=== PATIENT | male | born 1985 | race Asian ===

== ENCOUNTER 2017-08-17 15:27 | Emergency (ER) | payer OTHER ==
[~2017-08-17] VITALS: Ht 170.2 cm; Wt 89.0 kg
[2017-08-17 15:32] VITALS: BP 138/74
[2017-08-17] MEDS ORDERED: ciprofloxacin 0.3% 5ml ophthalmic solution EACHEYE STA (15:37)
== END 2017-08-17 15:56 | disposition home or self-care (01) ==
LOC: ER 15:28
DX: B99.9 Unspecified infectious disease (principal); H10.89 Other conjunctivitis
CPT/HCPCS: 99282

== ENCOUNTER 2017-09-01 13:32 | Emergency (ER) | payer MEDICAID, OTHER ==
[~2017-09-01] VITALS: Ht 170.2 cm; Wt 86.0 kg
[2017-09-01] MEDS ORDERED: TETanus/Pertussis (Acell)/Diphther VAC/PF (Tdap-Adult) 0.5ml syringe IM ONE (15:50)
[2017-09-01] MEDS ORDERED: CefTRIAXone 250MG IM Kit w/LIDOcaine IM ONE (16:35)
[2017-09-01] MEDS ORDERED: azithromycin 250mg tablet PO ONE (16:35)
[2017-09-01] MEDS ORDERED: ondansetron 4mg rapidly disintigrating tab PO ONE (16:35)
[2017-09-01 16:48] LABS: CLARITY,URINE CLOUDY (Clear); COLOR,URINE YELLOW (Yellow); GLUCOSE, URINE NEGATIVE (Neg); KETONES,URINE TRACE mg/dl (Neg); LEUKOCYTE ESTERASE ,URINE MODERATE (Neg); NITRITES, URINE NEGATIVE (Neg); OCCULT BLOOD,URINE TRACE-INTACT (Neg); PROTEIN,URINE TRACE mg/dl (Neg); UA COLLECTION TYPE CLN CATCH MIDSTREAM; UROBILINOGEN,URINE 0.2 E.U/dL (0.2-1.0)
[2017-09-01 16:54] LABS: BACTERIA,URINE 2+ /HPF (Neg); MUCUS STRANDS FEW /LPF (Neg); SQUAMOUS EPITHELIAL CELL,UR FEW /LPF (FEW); WBC CLUMPS,URINE FEW /HPF (NEGATIVE)
[2017-09-01 16:55] LABS: RBC,URINE 0-2 /HPF (0-2); WBC,URINE TNTC /HPF (0-4)
[2017-09-01] MEDS ORDERED: ciprofloxacin 0.3% 5ml ophthalmic solution EACHEYE STA (17:04)
[2017-09-01 17:44] VITALS: BP 129/75
== END 2017-09-01 17:45 | disposition home or self-care (01) ==
LOC: ER 13:33
DX: H10.9 Unspecified conjunctivitis (principal); F17.200 Nicotine dependence, unspecified, uncomplicated; F15.90 Other stimulant use, unspecified, uncomplicated
CPT/HCPCS: 36415; 81001; 87070; 87088; 87491; 87591; 90471; 90715; 96372; 99284; J0696; 87077; 87185

== ENCOUNTER 2020-06-26 17:55 | Emergency (ER) | payer MEDICAID, OTHER ==
[~2020-06-26] VITALS: Ht 170.2 cm; Wt 90.9 kg
[2020-06-26 18:38] VITALS: BP 115/63
--- NOTE | 2020-06-26 18:46 | NUR ---
PT STATES CHP WERE AT SCENE, WAS GIVEN
[2020-06-26] MEDS ORDERED: LIDOcaine 1% W/epiNEPHrine 1:100,000 20ml vial SQ ONE (19:10)
[2020-06-26] MEDS ORDERED: HYDR-3972 PO (20:05)
[2020-06-26] MEDS ORDERED: ORPH100T2 PO (20:05)
== END 2020-06-26 20:15 | disposition home or self-care (01) ==
LOC: ER 17:55
DX: S16.1XXA Strain of muscle, fascia and tendon at neck level, initial encounter (principal); S29.012A Strain of muscle and tendon of back wall of thorax, initial encounter; S20.212A Contusion of left front wall of thorax, initial encounter; F11.90 Opioid use, unspecified, uncomplicated; F12.90 Cannabis use, unspecified, uncomplicated; F15.90 Other stimulant use, unspecified, uncomplicated; F17.200 Nicotine dependence, unspecified, uncomplicated; V49.9XXA Car occupant (driver) (passenger) injured in unspecified traffic accident, initial encounter; W22.11XA Striking against or struck by driver side automobile airbag, initial encounter; Y93.89 Activity, other specified; Y92.89 Other specified places as the place of occurrence of the external cause; Y99.8 Other external cause status
CPT/HCPCS: 71045; 72125; 99284

== ENCOUNTER 2020-07-02 18:45 | Emergency (ER) | payer MEDICAID ==
[~2020-07-02] VITALS: Ht 152.4 cm; Wt 90.9 kg
[~2020-07-02 18:45] MED LIST: HYDR-3972 PO; ORPH100T2 PO
[2020-07-02 18:50] VITALS: BP 125/76
== END 2020-07-02 21:49 | disposition home or self-care (01) ==
LOC: ER 18:46
DX: M79.10 Myalgia, unspecified site (principal); Z02.89 Encounter for other administrative examinations; V98.8XXA Other specified transport accidents, initial encounter; Y93.89 Activity, other specified; Y92.89 Other specified places as the place of occurrence of the external cause; Y99.8 Other external cause status
CPT/HCPCS: 99283

== ENCOUNTER 2024-08-07 10:45 | Emergency (ER) | payer MEDICAID ==
[~2024-08-07] VITALS: Ht 170.2 cm; Wt 90.9 kg
[~2024-08-07 10:45] MED LIST changes: -HYDR-3972 PO; -ORPH100T2 PO; +ORPH100T4 PO
[2024-08-07 10:52] VITALS: BP 125/74; PULSE 97; RESP 16; TEMP 97.5; O2SAT 99
--- NOTE | 2024-08-07 11:40 | Physician Documentation ---
History of Present Illness ~ Chief Complaint: Nose Pain Stated Complaint: SINUS INFECTION Time Seen by MD: 11:16 HPI This is a very pleasant previously healthy 38-year-old gentleman who presents for evaluation of nasal congestion for the last three days. No obvious trigger provocation. Voice about sinus infection. Can not breathe through his right nostril, reports significant swelling of the left nostril. Significant congestion with a green discharge. No foreign body insertion. The particular palliating or aggravating factors. Denies any fever or chills. Denies any headache. Denies any symptoms. No concern for tobacco, alcohol or illicit substances use Medication Reconciliation Allergies: Coded Allergies: No Known Allergies (Unverified , 08/17/17) Scheduled Orphenadrine Citrate (Norflex), 1 TAB PO Q12H PRN Past Medical History Past Medical History: No Pertinent History Past Surgical History: no surgical history Alcohol Use: None Lives with: Family Lives In: Home Review of Systems ROS 10 point review of systems was performed and unless noted above in HPI is negative for acute process/complaint. Physical Exam Vital Signs: Temperature: 97.5, Source: Temporal, Heart Rate: 97, Respiratory Rate: 16, BP: 125/74, Pulse Oximetry: 99, Weight: 90.910 Oxygen Flow Rate: 0 Physical Exam Physical examination: GENERAL: Awake, alert, oriented, GCS 15, no apparent distress, non-toxic appearing, answers questions, follows commands appropriately. HEENT: Atraumatic, normocephalic, pupils equal, extraocular muscles intact Active gross movements, sclerae anicteric, mucus membranes moist, no stridor. NECK: Midline, no JVD CARDIOVASCULAR: Good skin perfusion without evidence of pallor, mottling. PULMONARY: Nonlabored, symmetric chest rise, no audible wheezing, no accessory muscle use, no respiratory distress, speaking in full sentences. GASTROINTESTINAL: Not distended. NEUROLOGIC: Lucid with normal mental status. Normal facial symmetry. Moves all extremities symmetrically and with purpose. No truncal ataxia. Speech is fluid without evidence of dysarthria or aphasia, no focal deficits appreciated. EXTREMITIES: Acute deformities Skin: warm, dry PSYCHIATRIC: Normal affect, normal insight, normal concentration. Focused exam: Appropriate anatomy of the nose, no tenderness over the bridge, no tenderness over the ala bilaterally, nasal passages examined. Significant swelling of turbinates in the right Parra, almost obstructing the entire right near. Left Parra has some mucosal swelling but appears to be patent. No floor of the mouth elevation. No drooling. No tenderness to percussion of maxillary or frontal sinuses. No pain with the extraocular range of motion. No trismus. Progress Results/Orders Results/Orders Vital Signs 08/07/24 10:52 Temp 97.5 Pulse 97 Resp 16 B/P (MAP) 125/74 Pulse Ox 99 O2 Flow Rate 0 Medical Decision Making Findings Facility Status: ED Holds, [facility] process The plan was discussed with the patient, who demonstrates clear understanding of the plan and is in agreement with the plan unless otherwise noted in the chart. All questions have been answered, all concerns were addressed unless otherwise documented. I was available throughout their ED stay for frequent reassessment and questions. Differential Diagnoses (considered and possible or likely): [Most likely represents nasal congestion secondary to viral infection, less likely bacterial infection, less likely sinusitis. Neoplasm has been considerably duration of symptoms does not warrant an immediate ENT consultation or imaging at this time. No evidence of epistaxis. Denies any foreign body insertion. No evidence of airway obstruction. 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 ] ??Differential Diagnoses (considered and unlikely, not requiring evaluation c urrently): [No evidence of traumatic injury] MDM Data Please see [facility] for the following: Independent Historians and external Records Review. Historian: [Patient] Independent Historians: ?[Girlfriend] Medication Management: [Reviewed medication list] Social History and determinants: [Reviewed] Please see the body of the note for the following: Any independent interpretations of ECG, imaging studies. All vitals signs/haemodynamics, ordered tests were independently reviewed and interpreted by myself. Nursing triage complaint and vitals reviewed, additional nursing notes were reviewed as available and I agree unless otherwise noted or documented in contradiction in the chart Vital Signs: Independently reviewed Labs: Independently interpreted Imaging: Independently interpreted Old Medical Records: Independently reviewed, see [facility] for relevant summary and information Pulse Oximetry: [99%] interpreted as [normal on room air] by me [Ply Cutter: [Regular Rate, Regular rhythm, no ectopy, NSR] reviewed and interpreted by me] Additionally notably showing: [Hemodynamically stable] Tests considered but not ordered include: [Hematologic workup and imaging has been considered but does not appear to be necessary given clinical nature of diagnosis] Social Determinants of Health Impact: Patient was evaluated in [facility] [place], or [facility] [place] to healthcare due to below par ratio of patient to medical providers. [] Comorbid Conditions Impacting Present Evaluation and Care/Treatment: [None reported by the patient] Management Discussions with other Healthcare Providers: [None] Treatment and Disposition Medication Management (Given or considered): []. See EMR for details Consideration for Hospitalization/Escalation/Deescalation of Care: Admission for observation has been considered, [however the patient is able to tolerate p.o., their symptoms are controlled, they are able to rely on oral medications, and their chief complaint/diagnosis can be managed on outpatient basis.] ?ED Course:?[No clinical deterioration.] ?Shared decision making:?[Patient is hemodynamically stable for discharge home with follow with their primary care provider. [ ] Specific and cautious return precautions provided and discussed with full understanding. Any incidental findings were also discussed and follow up recommendations given. [] All questions answered. Patient/family were able to verbalize back return precautions. Patient/family agree to plan. Copies of imaging and laboratory studies were provided.] Code status:?FULL Please see the full Electronic Medical Record for full details of nursing documentation, medications list, other records of complete past medical history and conditions, vital signs, laboratory studies, and any radiologic study interpretations by radiologists. Portions of this note were completed using [employer] dictation software and as a result there may exist minor errors in spelling. I have reviewed elements of past family and social history and agree as included in note. Departure Disposition: 01 HOME / SELF CARE / HOMELESS Impression: Primary Impression: Nasal congestion Condition: Improved Discharge Instructions: Upper Respiratory Infection, Adult Additional Instructions: It appears that you are suffering from significant swelling of turbinates secondary to likely viral infection. Clinically there was no evidence of bacterial infection. Use nasal decongestants, medicated, such as oxymetazoline or phenylephrine nasal drops. Do not use for more than three days. Return to emergency department if his symptoms do not improve in the next three days. If your symptoms persist for more than 10 days, if you develop pain with the eye motion, fever, pain with percussion of the face, you may need antibiotics. I Referrals: NO PRIMARY CARE PROVIDER (PCP) Education Educated: Patient, Family Educated regarding: diagnosis, treatment, prognosis, need for follow up Signature Scribe Signature: No scribe Attestation: This note accurately reflects clinical decisions, work performed by myself, DO EMILE Guzman NICHOLAS M DO Aug 07, 2024 11:40
== END 2024-08-07 11:45 | disposition home or self-care (01) ==
LOC: ER 10:46
DX: R09.81 Nasal congestion (principal); Z79.899 Other long term (current) drug therapy
CPT/HCPCS: 99282